=== PATIENT | male | born 1995 | race Hispanic/Latino ===

== ENCOUNTER 2017-01-30 07:29 | Emergency (ER) | payer OTHER ==
[~2017-01-30] VITALS: Ht 167.6 cm; Wt 86.2 kg
[2017-01-30 07:37] VITALS: BP 131/81
[2017-01-30] MEDS ORDERED: AZITHROMYCIN250 M1 PO (07:53)
[2017-01-30] MEDS ORDERED: PROAIR HFA8.5 GM INH (07:53)
[2017-01-30] MEDS ORDERED: PREDNISONE20 M1 PO (07:53)
[2017-01-30] MEDS ORDERED: TESSALON PERLE100 M1 PO (07:54)
--- NOTE | 2017-01-30 07:54 | ED THROAT/DENTAL COMPLAINT ---
History of Present Illness General Chief Complaint: Sore Throat, Dental Pain Stated Complaint: SORE THROAT X 1DY Source: patient, old records Exam Limitations: no limitations Vital Signs & Intake/Output Vital Signs & Intake/Output Vital Signs Date Time Temp Pulse Resp B/P B/P Pulse O2 O2 Flow FiO2 Mean Ox Delivery Rate 01/30 0737 98.8 85 18 131/81 98 Room Air Allergies Coded Allergies: No Known Allergies (01/30/17) Reconcile Medications Albuterol Sulfate (Proair Hfa) 90 MCG HFA.AER.AD 2-4 PUF INH Q4-6 PRN PRN cough Azithromycin 250 MG TABLET 1 TAB PO DAILY bronchitis Benzonatate (Tessalon Perle) 100 MG CAPSULE 1 CAP PO TID PRN cough Prednisone 20 MG TABLET 1 TAB PO BID bronchitis Triage Note: PT TO ED FOR SORE THROAT X 1 DAY. DENIES FEVER, HAS NOT TRIED ANYTHING OTC. Triage Nurses Notes Reviewed? yes Onset: Evening Duration: hour(s):, constant, continues in ED Timing: recent history Severity: mild, moderate No Modifying Factors: none Associated Symptoms: cough HPI: Several hours prior to admission patient complains of sore throat nonproductive cough malaise. Denies fever chills chest pain shortness breath headache dysuria rash bleeding. Past History Travel History Traveled to [place] past 21 day No Medical History Any Pertinent Medical History? see below for history Neurological: NONE EENT: SEASONAL ALLERGIES Cardiovascular: NONE Respiratory: NONE Gastrointestinal: NONE Hepatic: NONE Renal: NONE Musculoskeletal: NONE Psychiatric: NONE Endocrine: NONE Blood Disorders: NONE Cancer(s): NONE Surgical History Surgical History: non-contributory Psychosocial History What is your primary language Greenlandic Tobacco Use: Current Not Daily Daily Tobacco Use Amount/Type: =< 4 Cigarettes daily ETOH Use: occasional use Illicit Drug Use: marijuana Family History Hx Contributory? No Review of Systems Review of Systems Constitutional: Reports: see HPI, malaise. EENTM: Reports: see HPI, throat pain. Respiratory: Reports: see HPI, cough. Denies: sputum production. Cardiovascular: Reports: no symptoms. GI: Reports: no symptoms. Genitourinary: Reports: no symptoms. Musculoskeletal: Reports: no symptoms. Skin: Reports: no symptoms. Neurological/Psychological: Reports: no symptoms. Hematologic/Endocrine: Reports: no symptoms. Immunologic/Allergic: Reports: no symptoms. All Other Systems: Reviewed and Negative Physical Exam Physical Exam General Appearance: well developed/nourished, alert, awake, anxious, mild distress Head: atraumatic, normal appearance Eyes: Bilateral: normal appearance, PERRL, EOMI. Ears: Bilateral: canal normal, Tympanic normal. Nose: normal inspection Mouth/Throat: normal mouth inspection, pharynx swelling, uvula swelling Neck: normal inspection, supple, full range of motion, trachea midline, lymphadenopathy (R), lymphadenopathy (L) Cardiovascular/Respiratory: normal peripheral pulses, regular rate/rhythm, no respiratory distress, wheezing Back: normal inspection, normal range of motion Neurologic/Psych: no motor/sensory deficits, awake, alert, oriented x 3, normal gait, normal mood/affect Skin: intact, normal color, warm/dry Core Measures ACS in differential dx? No Severe Sepsis Present: No Septic Shock Present: No Progress Differential Diagnosis: patrica-tonsillar abscess, stomatitis/gingivitis, strep pharyngitis Plan of Care: Orders Procedure Date/time Status THROAT CULTURE W/QUICK STREP 01/30 738 Active Current Medications Sig/Enrique Start time Last Medication Dose Stop Time Status Admin Azithromycin 500 MG ONCE ONE 01/31 800 AC (Zithromax) 01/30 801 Ibuprofen 600 MG ONCE ONE 01/31 800 AC (Motrin) 01/30 801 Prednisone 60 MG ONCE ONE 01/31 800 AC 01/30 801 Departure Departure Time of Disposition: 075 Disposition: HOME OR SELF CARE Condition: Stable Clinical Impression Primary Impression: Uvulitis Secondary Impressions: Bronchitis Referrals: RADHA LARES MD (PCP/Family) Departure Forms: Customer Survey General Discharge Information RELEASE- WORK Prescriptions: Current Visit Scripts Azithromycin 1 TAB PO DAILY #4 TAB Prednisone 1 TAB PO BID #10 TAB Albuterol Sulfate (Proair Hfa) 2-4 PUF INH Q4-6 PRN PRN cough #1 INHAL Benzonatate (Tessalon Perle) 1 CAP PO TID PRN cough #21 CAP
== END 2017-01-30 08:07 ==
LOC: ERH 07:29
DX: K12.2 Cellulitis and abscess of mouth (principal); J40 Bronchitis, not specified as acute or chronic
CPT/HCPCS: J0456